=== PATIENT | female | born 1980 | race Caucasian/White ===

== ENCOUNTER → 2020-06-25 13:59 | Outpatient (BNVA) | payer SELFPAY | PROVIDERS: Family Provider Family Medicine; Visit Provider Obstetrics & Gynecology | DX: Z12.4 Encounter for screening for malignant neoplasm of cervix; Z11.3 Encounter for screening for infections with a predominantly sexual mode of transmission; N64.4 Mastodynia; N93.0 Postcoital and contact bleeding | CPT/HCPCS: 87491; 87591; 88175 ==

== ENCOUNTER 2020-07-06 13:42 | Outpatient (CLI) | payer SELFPAY ==
--- NOTE | 2020-07-06 14:00 | MM_ITS ---
WS: [id number] DIAGNOSTIC BILATERAL DIGITAL MAMMOGRAM WITH CAD LEFT breast ultrasound, limited HISTORY: LT BREAST LUMP/PAIN COMPARISON: None available. TECHNIQUE: Bilateral craniocaudad, mediolateral oblique, and mediolateral views are submitted. Spot c ompression LEFT CC. Computer aided detection utilized. Breast composition: The breasts are heterogeneously dense, which may obscure small masses. Palpable m arker corresponds to an area of mild increased asymmetry. There is a 3 mm ovoid nodule towards the ax illary tail which does not definite correspond to the marker. There is a lymph node in the axillary t ail. No distortion. LEFT breast ultrasound, limited. Ultrasound is directed to the upper outer quadrant. At 1:00, 2 cm from the nipple is a hypoechoic ovo id nodule which probably corresponds to the mammographic nodule. There is no distortion. This may be normal fibroglandular breast tissue. There is no shadowing or suspicious finding. MM/[place] [id number] IMPRESSION: BI-RADS: 3-Probably Benign FOLLOW UP: 6 Month Follow-up Recommend follow-up ultrasound in 6 months to reevaluate the very nonspecific 3 mm nodule at 1:00. Favor this is probably benign breast tissue or a small lymp h node.
== END 2020-07-06 13:43 | disposition home or self-care (01) ==
LOC: RADSHAW 13:44
PROVIDERS: Visit Provider Obstetrics & Gynecology
DX: N63.21 Unspecified lump in the left breast, upper outer quadrant (principal); N64.4 Mastodynia
CPT/HCPCS: 76642; 77066

== ENCOUNTER 2020-11-07 11:56 | Outpatient (CLI) | payer SELFPAY ==
--- NOTE | 2020-11-07 12:45 | US_ITS ---
WS: [id number] ULTRASOUND LEFT BREAST HISTORY: N63.0 - Unspecified lump in unspecified breast COMPARISON: 07/06/2020 TECHNIQUE: 2-D and Doppler. No change in the ovoid intermediate hypoechoic nodule at 1:00, 2 cm the nipple. Nodule measures 8 x 9 x 3 mm. No increased vascularity. US/US breast LT limited* [id number] IMPRESSION: BI-RADS: 3-Probably Benign FOLLOW-UP: 6 Month Follow-up Patient to return in 6 months for annual bilateral mammogram. LEFT breast ultra sound can be performed to document continued stability of the solid nodule at 1 :00. Nodule is very benign in appearance.
== END 2020-11-07 11:57 | disposition home or self-care (01) ==
LOC: RADSHAW 11:59
PROVIDERS: Visit Provider Obstetrics & Gynecology
DX: N63.21 Unspecified lump in the left breast, upper outer quadrant (principal)
CPT/HCPCS: 76642

== ENCOUNTER 2021-08-09 08:24 | Outpatient (CLI) | payer BC, SELFPAY ==
--- NOTE | 2021-08-09 08:42 | MR_ITS ---
WS: [id number] MRI LUMBAR SPINE NONCONTRAST TECHNIQUE: Sagittal T1, T2 and STIR imaging. Axial T1 and T2 imaging. CLINICAL INFORMATION: LUMBAR DDD COMPARISON: MRI FINDINGS: Mild lumbar curve. No acute compression. No high-grade central canal stenosis. Disc bulging worse at L4-L5 and L5-S1. Tiny annular tears with tiny central protrusions at these levels. L1-L2: Mild annular bulging. Slight effacement of ventral thecal sac. Spinal canal and foramen are pa tent. L2-L3: Normal. L3-L4: No significant disc bulging. Mild facet arthropathy. Spinal canal and foramen are patent. L4-L5: Tiny shallow central protrusion with a small annular fissure. Impingement on traversing L5 ner ve roots bilaterally. Mild facet arthropathy. Foramen are patent. L5-S1: Tiny shallow central protrusion. Slight effacement of ventral thecal sac. Slight impingement t raversing LEFT S1 nerve root. Mild facet arthropathy. Spinal canal and foramen are patent. Tiny central protrusions lower thoracic spine at T9-T10 and T10-11 with slight contact of the lower t horacic cord. Overall no significant changes compared to 2018. MR/MR lumbar spine wo con* [id number] IMPRESSION: 1. Mild lumbar curve. No acute compression. No high-grade central canal stenos is. 2. Shallow central protrusion L4-L5 with slight impingement traversing L5 nerv e roots bilaterally. Mild central canal stenosis. 3. Tiny shallow central protrusion L5-S1 with slight contact of the LEFT S1 ne rve root. 4. Mild annular bulging L1-L2 with slight narrowing of the RIGHT subarticular recess. 5. Tiny central protrusions lower thoracic spine at T9-T10 and T10-T11 with sl ight contact of the lower thoracic cord.
== END 2021-08-09 08:25 | disposition home or self-care (01) ==
PROVIDERS: PCP Family Medicine; Visit Provider General Practice
DX: M51.36 Other intervertebral disc degeneration, lumbar region (principal); M51.26 Other intervertebral disc displacement, lumbar region; M51.27 Other intervertebral disc displacement, lumbosacral region; M51.24 Other intervertebral disc displacement, thoracic region
CPT/HCPCS: 72148

== ENCOUNTER → 2022-08-04 13:45 | Outpatient (BNVA) | payer BC, SELFPAY | PROVIDERS: PCP Family Medicine; Visit Provider Family Medicine | DX: M51.16 Intervertebral disc disorders with radiculopathy, lumbar region (principal); M47.816 Spondylosis without myelopathy or radiculopathy, lumbar region; M54.2 Cervicalgia; G89.29 Other chronic pain; M54.9 Dorsalgia, unspecified; N39.0 Urinary tract infection, site not specified; R39.15 Urgency of urination | CPT/HCPCS: 81003; 87086 ==

== ENCOUNTER 2022-08-12 18:02 | Emergency (ER) | payer BC, SELFPAY ==
[2022-08-12 18:10] VITALS: BP 125/82; PULSE 70; RESP 16; TEMP 36.8; O2SAT 99
--- NOTE | 2022-08-12 18:31 | W.ED.BACK ---
HPI - Back Pain/Injury General: Chief Complaint: Back Pain/Injury Stated Complaint: back pain Time Seen by Provider: 08/12/22 18:29 History of Present Illness: 41-year-old female comes in today with complaints of low back pain with pain and numbness radiating down the left leg. Patient has a history of intervertebral disc disease and facet arthritis. Patient reports Thursday she was moving her chair and felt a strain in her left low back. Patient denies any falls or other injury. Patient appears nontoxic. Patient appears in moderate pain. Patient does have a history of anxiety and major depressive disorder. Associated symptoms: Reports urinary urgency; Deny fever(s), nausea or vomiting Review of Systems Const: Denies: fever(s) Card: Denies: chest pain Resp: Denies: dyspnea GI: Denies: nausea or vomiting : Reports: urinary urgency Musc: Reports: back pain Skin/Breast: Denies: rash PFSH ED PFSH: Medical History Breast pain PCB (post coital bleeding) Psychiatric care Screening for cervical cancer Family History Family/Other Stroke Maternal great aunt Family history of thyroid problem Migraine headache Mother Arthritis Anxiety disorder Hypertension Cancer Small cell lung cancer Grandmother Arthritis maternal Cancer Denies family history of Diabetes Social History Smoking and tobacco status: current every day smoker cigarettes Packs smoked per day: 0.5 Years cigarettes smoked: 21 Quit status (tobacco): has tried quititng Number of times tried to quit tobacco: 5 Second hand smoke exposure: No Smoking risk assessment/counseling performed?: No Alcohol intake: current Alcohol intake frequency: holidays/special occasions only Alcohol type: beer Desire information about alcohol rehabilitation?: No Counseling given: No Desire information about substance/drug rehabilitation?: No Counseling given: No Current gender identity: Female Physical Exam Const: COMMON NORMALS: alert HENMT: COMMON NORMALS: normocephalic HEAD & SCALP: normocephalic THROAT: posterior oropharynx normal Neck/C-Spine: COMMON NORMALS: full ROM Resp: COMMON NORMALS: normal respiratory effort and clear to auscultation bilaterally AUSCULTATION: clear to auscultation bilaterally Cardio: COMMON NORMALS: regular rate and regular rhythm RATE: regular rate RHYTHM: regular rhythm Back/Pelvis: THORACIC SPINE/UPPER BACK: No thoracic spinal tenderness LUMBAR SPINE/LOWER BACK: No lumbar spinal tenderness and Yes paraspinal muscle tenderness Lumbar paraspinal muscle tenderness: left Extremity: COMMON NORMALS: normal to inspection Neuro: SENSORIUM/ORIENTATION: Yes alert Skin: COMMON NORMALS: turgor normal GENERAL SKIN EXAM: turgor normal Course Vital Signs: Vital signs: Vital Signs Temperature 98.3 F 08/12/22 18:10 Pulse Rate 70 08/12/22 18:10 Respiratory Rate 16 08/12/22 18:10 Blood Pressure 125/82 08/12/22 18:10 Pulse Oximetry 99 08/12/22 18:10 Oxygen Delivery Me thod 08/12/22 18:10 MDM - Back Pain/Injury Medical Decision Making 41-year-old female comes in today for complaints of low back pain that started on Thursday. On exam patient has no vertebral tenderness along spine. Patient has muscle tenderness of the left lower lumbar. Positive leg lift test of the left lower extremity. Pulses are positive with no significant swelling. Vital signs are normal. Differential diagnosis includes but not limited to intervertebral disc disease, facet arthropathy, lumbar strain. Review of the record noted several films have been done within the last year for her lumbar spine and pain. Patient does have some mild degeneration of the disks in the lower lumbar noted on the MRI done in 2021. No signs of significant spinal stenosis was noted at that time. Suspect patient just strained her back while moving the object. We will go ahead and treat for acute pain and inflammation and muscle spasms. Patient reports understanding agreed to plan. Discharge Plan Discharge Patient Disposition: Home Clinical Impression: Strain of lumbar region Qualifiers: Encounter type: initial encounter Qualified Code(s): S39.012A - Strain of muscle, fascia and tendon of lower back, initial encounter Condition: Stable Prescriptions: New cyclobenzaprine 10 mg tablet 10 mg PO .HS Qty: 10 0RF diclofenac sodium 75 mg tablet,delayed release (DR/EC) 75 mg PO BID Qty: 20 0RF hydrocodone-acetaminophen 5-325 mg tablet 1 tab PO Q8H PRN (Reason: pain (scale score 7-10)) Qty: 10 0RF No Action ibuprofen 200 mg capsule 600 mg PO Q8H PRN (Reason: fever or pain) duloxetine 60 mg capsule,delayed release(DR/EC) 120 mg PO DAILY Qty: 60 2RF Discharge Orders: Discharge ED (Routine); Ordered 08/12/22 Ordered By: Olayinka Hein Referrals: Koko Bond MD [Primary Care Provider] - Discharge Diet: Usual diet Discharge Activity: Increase activity as tolerated Patient Instructions: Back Pain (ED) Activity Restrictions/Additional Instructions: Maintain normal activity is much as possible. Use ice or heat to the area for further pain relief. Gentle stretching and range of motion exercises. Avoid excessive activity or straining. Drink plenty of water with medication. Use diclofenac 1 tablet twice a day routinely for control of pain and inflammation. Do not use ibuprofen or naproxen with diclofenac. Use acetaminophen as needed for further control of pain. Take cyclobenzaprine 10 mg at at bedtime for further muscle spasm and pain relief. Use hydrocodone for severe pain. Follow-up with primary care for further instruction and evaluation of injury. Coding Level of Care Code ED Director Of Curriculum for Jong Jones
[2022-08-12] MEDS: HYDROcodone-acetaminophen 10-325 mg Tablet 1 TAB PO (19:05)
[2022-08-12] MEDS: ketorolac 30 mg/mL INJ IM (19:05)
== END 2022-08-12 19:26 | disposition home or self-care (01) ==
PROVIDERS: Emergency Provider Nurse Practitioner Family; PCP Family Medicine
DX: S39.012A Strain of muscle, fascia and tendon of lower back, initial encounter (principal); F17.210 Nicotine dependence, cigarettes, uncomplicated; X50.0XXA Overexertion from strenuous movement or load, initial encounter
CPT/HCPCS: 96372; 99284; J1885

== ENCOUNTER 2022-12-26 13:44 | Emergency (ER) | payer BC, SELFPAY ==
[2022-12-26 13:46] VITALS: BP 135/61; PULSE 73; RESP 16; TEMP 36.8; O2SAT 98; BMI 23.8
--- NOTE | 2022-12-26 13:48 | XR_ITS ---
WS: [id number] EXAMINATION: XR hand RT min 3V* [id number] REASON FOR EXAM: injury/pain COMPARISON: None available. ORDER DATE: 12/26/2022 1:48 PM FINDINGS: There is no sign of any acute osseous or articular abnormality. There are no specific soft tissue abn ormalities. XR/XR hand RT min 3V* [id number] IMPRESSION: No acute change
--- NOTE | 2022-12-26 13:57 | W.ED.ANIMALB ---
HPI - Animal Bite General: Chief Complaint: Animal Bite Stated Complaint: right hand injury Time Seen by Provider: 12/26/22 13:47 Source: patient Mode of arrival: ambulatory Limitations: no limitations History of Present Illness: Patient is a 42-year-old female presents to ED today for evaluation following a dog bite injury to her right hand. She states two of her household dogs who are up-to-date on immunizations and appeared well were fighting when she got in between them causing one of the animals to bite her right hand. She has multiple puncture wounds to the hand and fingers. Her last tetanus is unknown. No bleeding. Denies numbness, tingling, loss of sensation. complaint: animal bite Onset (ago): hour(s) Animal: dog Description of animal: household pet, immunizations UTD and appeared well Mechanism: bite Location - Extremities: Right: hand Context: animals fighting Associated symptoms: Reports no associated symptoms; Deny chills or fever(s) Related Data: Patient tetanus UTD: No Review of Systems Const: Denies: fever(s), chills, body aches, fatigue or malaise Musc: Reports: extremity pain (R hand); Denies: joint redness or joint warmth Skin/Breast: Reports: other (dog bites R hand) Neuro: Denies: numbness in extremities, weakness in extremities or sensory changes [facility] ED PFSH: Medical History Breast pain PCB (post coital bleeding) Psychiatric care Screening for cervical cancer Family History Family/Other Stroke Maternal great aunt Family history of thyroid problem Migraine headache Mother Arthritis Anxiety disorder Hypertension Cancer Small cell lung cancer Grandmother Arthritis maternal Cancer Denies family history of Diabetes Social History Smoking and tobacco status: current every day smoker cigarettes Packs smoked per day: 0.5 Years cigarettes smoked: 21 Quit status (tobacco): has tried quititng Number of times tried to quit tobacco: 5 Second hand smoke exposure: No Smoking risk assessment/counseling performed?: No Alcohol intake: current Alcohol intake frequency: holidays/special occasions only Alcohol type: beer Desire information about alcohol rehabilitation?: No Counseling given: No Substance/Drug Use: never Desire information about substance/drug rehabilitation?: No Counseling given: No Current gender identity: Female Physical Exam Const: COMMON NORMALS: average body habitus, patient oriented x3, no limitations, healthy appearing, alert and well nourished GENERAL APPEARANCE: cooperative and in distress (appears uncomfortable secondary to pain) Extremity: COMMON NORMALS: full ROM and capillary refill normal GENERAL: Yes normal exam except as noted RIGHT UPPER EXTREMITY: Yes hand & digits Right hand and digits: Yes ROM exam (normal), Yes neurovascular exam (normal ) and Yes tendon exam (normal) OTHER: multiple small puncture rodriguez (about 2mm) throughout volar proximal hand and dorsum of hand as well; she has a few small abrasions and one larger puncture (about 4mm) to lateral R middle finger; no obvious swelling; no erythema/warmth/drainage; no apparent tendon involvement Neuro: COMMON NORMALS: patient oriented x3, moves all extremities, no focal motor deficits and no sensory deficits noted SENSORIUM/ORIENTATION: Yes alert Skin: NARRATIVE SKIN EXAM: see extremity above; otherwise normal skin examination Course Vital Signs: Vital signs: Vital Signs Temperature 98.2 F 12/26/22 13:46 Pulse Rate 73 12/26/22 13:46 Respiratory Rate 16 12/26/22 13:46 Blood Pressure 135/61 12/26/22 13:46 Pulse Oximetry 98 12/26/22 13:46 Oxygen Delivery Me thod Room Air 12/26/22 13:46 MDM - Animal Bite Medical Decision Making Patient here following a dog bite to the right hand. Dogs were household pets and appeared well and are up-to-date on rabies vaccinations. XR of the right hand is negative for bony injury or retained foreign bodies. There is no tendon involvement on clinical exam. Her tetanus was updated. She was given p.o. Augmentin and will be given a prescription for this as well as something for pain. All wounds were copiously irrigated. One larger linear wound to the right middle finger was closed using a steri-strip. Remainder of wounds will be left open. Strict return to ED precautions given in regards to infection. If pain does not seem to be improving she needs to follow-up with her primary care next week. Discharge Plan Discharge Patient Disposition: Home Clinical Impression: Dog bite of multiple sites of right hand and fingers Qualifiers: Encounter type: initial encounter Qualified Code(s): S61.451A - Open bite of right hand, initial encounter Condition: Stable Prescriptions: New hydrocodone-acetaminophen 5-325 mg tablet 1 tab PO Q6H PRN (Reason: pain) Qty: 14 0RF amoxicillin-pot clavulanate 875-125 mg tablet 1 tab PO BID Qty: 14 0RF No Action ibuprofen 200 mg capsule 600 mg PO Q8H PRN (Reason: fever or pain) duloxetine 60 mg capsule,delayed release(DR/EC) 60 mg PO DAILY 30 Days Qty: 30 11RF cyclobenzaprine 10 mg tablet 10 mg PO .HS Qty: 10 0RF diclofenac sodium 75 mg tablet,delayed release (DR/EC) 75 mg PO BID Qty: 20 0RF hydrocodone-acetaminophen 5-325 mg tablet 1 tab PO Q8H PRN (Reason: pain (scale score 7-10)) Qty: 10 0RF Discharge Orders: Discharge ED (Routine); Ordered 12/26/22 Ordered By: Deborah Garibay Referrals: Koko Bond MD [Primary Care Provider] - Patient Instructions: Animal Bite (ED), Opioid Safety, Pain Management Activity Restrictions/Additional Instructions: As we discussed keep wounds clean with warm soap and water multiple times daily and monitor closely for signs of infection such as redness, swelling, increased pain, purulent drainage, red streaking to your hand or arm, fevers, or any other concerns you may have. Please seek prompt medical re-evaluation if these occur. You may follow-up with primary care next week if pain does not seem to be improving. Coding Level of Care Code ED Manager [employer] for Jong Jones
[2022-12-26] MEDS: amoxicillin-clav 875-125 mg Tablet 1 TAB PO (14:45)
[2022-12-26] MEDS: tetanus-dipt-pertussis 0.5 mL SDV IM (14:45)
== END 2022-12-26 15:06 | disposition home or self-care (01) ==
PROVIDERS: Emergency Provider Physician Assistant; PCP Family Medicine
DX: S61.451A Open bite of right hand, initial encounter (principal); S61.252A Open bite of right middle finger without damage to nail, initial encounter; F17.210 Nicotine dependence, cigarettes, uncomplicated; Z79.899 Other long term (current) drug therapy; W54.0XXA Bitten by dog, initial encounter
CPT/HCPCS: 73130; 90471; 90715; 97760; 99283; L3908

== ENCOUNTER 2023-09-03 08:10 | Outpatient (CLI) | payer BC, SELFPAY ==
--- NOTE | 2023-09-03 09:17 | NM_ITS ---
WS: [id number] NUCLEAR MEDICINE 24 HOUR I-123 THYROID UPTAKE INDICATION: Nontoxic multinodular goiter TECHNIQUE: I-123 24 HOUR THYROID UPTAKE WITH PLANAR IMAGING. [ ] [facility] 123 COMPARISON: None FINDINGS: Increased 24-hour thyroid uptake 53.85%. Recommend correlation with thyroid function studie s. Focal nodular increased uptake compatible with hot nodule in the LEFT mid to lower thyroid. Recomme nd ultrasound thyroid for anatomic correlation. NORMAL MEAN 24H THRYOID UPTAKE 8-35% IMPRESSION: 1. Increased 24-hour thyroid uptake 53.8%. Recommend correlation with thyroid function studies. 2. Focal hot nodule within the LEFT mid to lower thyroid. This could be further evaluated with ultra sound.
== END 2023-09-03 08:11 | disposition home or self-care (01) ==
LOC: RAD 08:11
PROVIDERS: PCP Family Medicine; Visit Provider Specialist
DX: E04.1 Nontoxic single thyroid nodule (principal)
CPT/HCPCS: 78014; A9516